=== PATIENT | female | born 1985 | race Native Hawaiian/Other Pacific Islander ===

== ENCOUNTER 2019-04-21 19:26 | Inpatient (IN) | payer OTHER ==
[~2019-04-21] VITALS: Ht 157.5 cm; Wt 65.1 kg
[2019-04-21 19:50] VITALS: BP 104/66
[2019-04-21] MEDS ORDERED: LACTATED RINGER'S 1000 ML IV STA (20:07)
--- NOTE | 2019-04-21 20:13 | HPEPDOC ---
Obstetrical History & Physical General Date of Admission Apr 21, 2019 at 20:06 History of Present Illness 34 yo at 38+6 weeks gestation by LMP of 23Jul2018 c/w 8+3 week US on presents to L&D with regular, painful contractions that have been worsening throughout the day. She denies any vaginal bleeding or leakage of fluid. She endorses excellent movement. is uncomplicated. Chief Complaint: Contractions, term Information Provided By: Patient Age: 34 : 2 Term: 1 Pre-term: 0 Abortions: 0 Livin Care Care: Good Care Dating Final EDC: Apr 29, 2019 Final EDC for Daily Update: Apr 29, 2019 Final EDC by: LMP (LMP of 23Jul2018) LMP: Jul 23, 2018 1st Trimester Date: Sep 17, 2018 (8+3 week US on 17Sep2018 c/w LMP dating. MEIR remains [id number]) Antepartum Course Diagnos(e)s Elevatd 1hr GTT of 144, normal 3 hour GTT. Past Medical History Past Obstetrical History : Past Obstetrical History: Multigravida ( in 2017, pelvis proven to 6lbs 14oz) Type of Delivery: Spontaneous Vaginal Del. 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 Past Medical History Medical History Denies Surgical History: Rimforest teeth Family History Significant Family History: No pertinent family hx Social History Marital Status: Family situation: Spouse/partner home Psychosocial History: No pertinent psych hx * Smoker: non-smoker Alcohol: Denies Drugs: denies Imunizations Tdap status: current Influenza Status: current Medications Scheduled Docosahexanoic Acid (Dha) 100 Mg Capsule, 100 MG PO DAILY No.137/Iron/Folic Acd ( Vitamin Tablet) 1 Each Tablet, 1 TAB PO DAILY [Vit D] , 1 TAB PO DAILY Physical Examination Physical Examination GENERAL: Alert and oriented times three. ABDOMEN: Gravid and non-tender to touch. FETUS: Is vertex (VTX) by sterile vaginal examination (SVE) EXTREMITIES: No edema. Laboratory Data Urine Culture: No Growth Pertinent Laboratoy Data Blood Type: O+ RBC Antibody Screen: Negative HIV: Negative Hepatitis B: Negative Hepatitis C: Unknown Rapid Plasma Reagin: Nonreactive Rubella: Immune Varicella: Immune Chlamydia/Gonorrhea: Negative Group B Streptococcus: Negative Quad Screen Test: Negative Cystic Fibrosis: Unknown Glucose Tolerance Test: 144 (1hr of 144, but normal 3hr testing) Anatomy Ultrasound Placenta Location: Posterior Normal Anatomy: Yes Placenta Previa: No Vaginal Examination Dilation: 4 cm Effacement: 90% Station: -1 Cervical Consistency: Soft Cervical Position: Middle Presentation: Cephalic presentation Position: Vertex (occiput) Assessment Heart Rate (FHR): 145 Variability: Moderate Accelerations: Positive Decelerations: None Tocometer Contractions: Yes Frequency: regular, every 1-3 min. Strength: palpated as strong Assessment/Plan Assessment 34 yo at 38+6 weeks presented in L&D in early labor. Uncomplicated . Plan Admit to L&D for expectant management of labor. Will augment as clinically ioana cated. Apply IV fluids. GBS negative. Patient may epidural if desired. Anticipate . DO HIRA Levi CHRISTOPHER J. DO Apr 21, 2019 20:13
[2019-04-21] MEDS ORDERED: PRENTAB9 PO (20:21)
[2019-04-21] MEDS ORDERED: DHA100CA PO (20:21)
[2019-04-21] MEDS ORDERED: VIT D PO (20:21)
[2019-04-21 20:56] LABS: HEMATOCRIT 39.4 % (36.0-47.0); HEMOGLOBIN 13.2 g/dl (12.0-15.5); MEAN CORPUSCULAR HEMOGLOBIN 29.9 pg (27.0-33.0); MEAN CORPUSCULAR HGB CONC 33.5 g/dl (32.0-36.5); MEAN CORPUSCULAR VOLUME 89.1 fl (80.0-96.0); PLATELET COUNT, AUTOMATED 262 10^3/uL (150-450); RED BLOOD COUNT 4.42 10^6/uL (4.00-5.40); WHITE BLOOD COUNT 10.6 10^3/uL (4.0-10.0)
[2019-04-22] VITALS (8 sets, daily range): BP systolic 78–101; BP diastolic 44–54
[2019-04-22] MEDS ORDERED: ACETAMINOPHEN 500 MG TAB PO PRN (00:45)
[2019-04-22] MEDS ORDERED: PROMETHAZINE 25 MG TAB PO PRN (00:45)
[2019-04-22] MEDS ORDERED: DIBUCAINE 1% OINTMENT 30GM TOP PRN (00:45)
[2019-04-22] MEDS ORDERED: ACETAMINOPHEN TAB 650MG DOSE (2X325MG) PO PRN (00:45)
[2019-04-22] MEDS ORDERED: MEASLES,MUMPS,RUBELLA VACCINE INJ (MMR-II) (90707) SC SCH (00:45)
[2019-04-22] MEDS ORDERED: IBUPROFEN 800 MG TAB PO PRN (00:45)
[2019-04-22] MEDS ORDERED: RHOGAM 300 MCG (1500 IU) INJ (J2790) IM SCH (00:45)
--- NOTE | 2019-04-22 00:47 | DNPDOC ---
[facility] Delivery Note Delivery Note DATE OF DELIVERY: 22Apr2019 at ~0015 PREDELIVERY DIAGNOSIS: 39+0 weeks gestation and active labor POST DELIVERY DIAGNOSIS: Delivered. 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 Millan ANESTHESIA: None ESTIMATED BLOOD LOSS: 200 mL. FINDINGS: Viable female infant, 7lbs 12oz, Apgars 9/9 DELIVERY SUMMARY: Called to room as patient felt urge to push. Exam revealed fetus at +2 station. The bed was broken down and she was prepped for delivery. With excellent pushing effort her delivered. presentation was CELSA with restitution to LOT. The right anterior shoulder delivered with gentle traction followed easily by the remainder of the body. There was a right com pound hand with delivery. The was dried and stimulated on the field and a bulb suction was used. The was then placed on the maternal abdomen and cried vigorously. The three vessel cord was then clamped and cut by the FOB after appropriate time delay. Third stage was then completed with gentle traction on the cord and it was productive of an intact placenta. The uterine fundus was firmed with massage. The patient declined pitocin after delivery. Inspection of the vagina, perineum, and cervix revealed a midline 1st degree perineal laceration and a periurethral laceration. Lidocaine was injected along the repair sites for additional analgesia. The lacerations were repaired with 3-0 and 4-0 vicryl suture in the usual fashion. There was excellent cosmesis and hemostasis after the repair. The fundus was palpated again and was firm. Sponge, instrument, and needle counts were correct X2. Mother stable when I left the room. DO HIRA Levi CHRISTOPHER J. DO Apr 22, 2019 00:47
[2019-04-22] MEDS: DOCUSATE SODIUM 100 MG CAP PO PRN (03:28)
[2019-04-22] MEDS: IBUPROFEN 600 MG TAB PO PRN ×3 (03:29→18:39)
[2019-04-22] MEDS: PRENATAL VITAMINS CHEWABLE TABLET PO SCH (10:26)
[2019-04-23 06:00] VITALS: BP 87/49
--- NOTE | 2019-04-23 06:37 | NUR ---
Post note S: no complaints O: BP=89/47 P=89 AF NAD Abd: NT, FF ext: NT A/P 34 yo s/p Routine PP care Alexander Eugene MD
[2019-04-23] MEDS: PRENATAL VITAMINS CHEWABLE TABLET PO SCH (09:53)
[2019-04-23] MEDS: DOCUSATE SODIUM 100 MG CAP PO PRN (15:45)
[2019-04-23 18:00] VITALS: BP 99/46
[2019-04-23] MEDS: IBUPROFEN 600 MG TAB PO PRN (18:14)
[2019-04-23] MEDS ORDERED: DOCUSATE SODIUM 100 MG CAP PO ONE (20:15)
[2019-04-23] MEDS ORDERED: BISACODYL 10 MG SUPP PR ONE (20:15)
[2019-04-24 06:23] VITALS: BP 90/56
--- NOTE | 2019-04-24 07:47 | IPNPDOC ---
Progress Note Date of Service: Apr 24, 2019 Day#: 2 Progress Note Pt doing well. No questions/concerns today. Lochia minimal. Tolerating PO. + f latus. Denies CP, SOB, or leg pain. Ambulating and voiding without issue. NAD AAO x 3 CTABL RRR S1S2 normal Fundus firm, NT 34yo PPD#2 s/p PLAN: 1. Discharge to home today. 2. Tylenol and Motrin for pain. 3. Encourage breast feeding and ambulation. 4. Routine PP visit in 6 weeks in clinic. 5. Discussed return precautions at length. VS, I&O, 24H, Fishbone Vital Signs/I&O Vital Signs Date Time Temp Pulse Resp B/P (MAP) Pulse Ox O2 Delivery O2 Flow Rate FiO2 04/24/19 06:23 97.8 68 18 90/56 (67) 04/22/19 05:48 98 DAWSON KENNEDY MD Apr 24, 2019 07:47
[2019-04-24] MEDS ORDERED: IBUP80TA PO (07:52)
[2019-04-24] MEDS ORDERED: ACET-683 PO (07:52)
[2019-04-24] MEDS ORDERED: COLA100C5 PO (07:52)
[2019-04-24] MEDS ORDERED: DOCUSATE SODIUM 100 MG CAP PO SCH (09:00)
[2019-04-24] MEDS: IBUPROFEN 600 MG TAB PO PRN (10:10)
== END 2019-04-24 13:15 | disposition home or self-care (01) | DRG 807 ==
LOC: M LDO 19:26 → M LDI 20:06 → M OBS 04-22 03:00
PROVIDERS: ADMIT Obstetrics & Gynecology; ATTEND Obstetrics & Gynecology
PROC: 10E0XZZ Delivery of Products of Conception, External Approach (ICD-10-PCS; principal; 2019-04-22)
PROC: 0HQ9XZZ Repair Perineum Skin, External Approach (ICD-10-PCS; 2019-04-22)
DX: O70.0 First degree perineal laceration during delivery (principal); Z37.0 Single live birth; Z3A.38 38 weeks gestation of pregnancy; O32.6XX0 Maternal care for compound presentation, not applicable or unspecified; O71.82 Other specified trauma to perineum and vulva

== ENCOUNTER 2020-11-02 20:29 | Inpatient (IN) | payer OTHER ==
[2020-11-02] VITALS (36 sets, daily range): BP systolic 70–136; BP diastolic 36–73
[~2020-11-02] VITALS: Ht 157.5 cm; Wt 67.0 kg
[~2020-11-02 20:29] MED LIST: ACET-683 PO; COLA100C5 PO; DHA100CA PO; IBUP80TA PO; PRENTAB9 PO; VIT D PO
[2020-11-02] MEDS ORDERED: LR 1,000 ML IV SCH (20:38)
[2020-11-02] MEDS ORDERED: LACTATED RINGER'S 1000 ML IV ONE (20:45)
[2020-11-02 20:51] LABS: HEMATOCRIT 38.8 % (36.0-47.0); HEMOGLOBIN 12.8 g/dl (12.0-15.5); MEAN CORPUSCULAR HEMOGLOBIN 30.1 pg (27.0-33.0); MEAN CORPUSCULAR VOLUME 91.3 fl (80.0-96.0); PLATELET COUNT, AUTOMATED 271 10^3/uL (150-450); RED BLOOD COUNT 4.25 10^6/uL (4.00-5.40); WHITE BLOOD COUNT 11.5 10^3/uL (4.0-10.0)
[2020-11-02] MEDS ORDERED: FENTANYL 2MCG/ML ROPIVACAINE 0.2% IN 0.9% NACL 100ML IVBAG As Ordered ONE (21:34)
--- NOTE | 2020-11-02 21:54 | HPEPDOC ---
Obstetrical History & Physical General Date of Admission Nov 02, 2020 at 20:48 Primary Care Physician: CHANTELLE NEWMAN CNM History of Present Illness Presenting to labor and delivery for SROM clear at term Chief Complaint: LOF, term Age: 35 : 4 Term: 2 Pre-term: 0 Abortions: 1 Livin Care Care: Good Care Dating Final EDC: Nov 10, 2020 Final EDC for Daily Update: Nov 10, 2020 Final EDC by: 1st trimester (US) 1st Trimester Date: Mar 21, 2020 Weeks + Days: 11 (+3) Estimated Date of Confinement: Nov 10, 2020 EGA at Admission: 38 (+6) Antepartum Course Diagnos(e)s marginal placenta on anatomy scan, resolved at 24 wks Height (inches): 62 Pre- weight (lbs.): 112 Admission Weight (lbs.): 147 Change in Weight (lbs.): 35 Past Medical History Past Obstetrical History : Past Obstetrical History: Multigravida (01/2017 38+6wk , 6#14 female; 03/2019 39wk , 7#12 female ) Complications: No AIR CARGO AGENT History: No pertinent history Past Medical History Medical History oral HSV Surgical History: Denies/None Family History Significant Family History: Hypertension (father), Other (sister-lupus) Social History 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 BREAST: . ABDOMEN: Gravid and non-tender to touch. FETUS: Is vertex (VTX) by sterile vaginal examination (SVE), fetus is vertex (VTX) by Job. HEART RATE: Regular rate and rhythm. LUNGS: Clear to auscultation (CTA). EXTREMITIES: No edema. No clonus. Vital Signs/I&O Vital Signs Date Time Temp Pulse Resp B/P (MAP) Pulse Ox O2 Delivery O2 Flow Rate FiO2 11/02/20 20:40 99.0 61 16 104/65 (78) Laboratory Data 24H LABS Laboratory Tests 2 11/02/20 20:40: Nucleated Red Blood Cells % (auto) 0.0 11/02/20 20:52: Serology Scanned Report Hepatitis B Testing CBC/BMP Laboratory Tests 11/02/20 20:40 Urine Culture: No Growth Pertinent Laboratoy Data Blood Type: O+ RBC Antibody Screen: Negative HIV: Negative Hepatitis B: Negative Rapid Plasma Reagin: Nonreactive Rubella: Immune Varicella: Immune Chlamydia/Gonorrhea: Negative Group B Streptococcus: Negative Cystic Fibrosis: Negative Anatomy Ultrasound Placenta Location: Anterior Normal Anatomy: Yes Placenta Previa: No (lowlying placenta at 20wks, resolved at f/u) Vaginal Examination Dilation: 4 cm Effacement: 90% Station: -2 Cervical Consistency: Soft Cervical Position: Posterior Presentation: Cephalic presentation Assessment Heart Rate (FHR): 120 Variability: Moderate Accelerations: Positive Decelerations: None Tocometer Contractions: Yes Frequency: regular (q2-4 min) Duration: greater than 60 seconds Strength: palpated as strong, resting tone palp/soft Multi-drug resistant Organism: No history of MDRO Assessment/Plan Assessment Marilyn is a 35-year-old (G)4 para (P)2-0-1-2 at 38+6 weeks by 11+3- week ultrasound. Presents to Labor and Delivery (L&D) for SROM clear at term. 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 Diet: clear liquids. Group B Streptococcus (GBS) negative. Labs and intravenous (IV) per unit protocol. Lactated Ringers (LR): Bolus 1000 mL, then at 125 mL/hr. May have epidural as desired. Anticipate normal spontaneous delivery (). C-S as appropriate. CHANTELLE NEWMAN CNM Nov 02, 2020 21:54
[2020-11-02] MEDS ORDERED: NALOXONE INJ 0.4MG/1ML VIAL (J2310 PER 1MG) IV PRN (22:00)
[2020-11-02] MEDS ORDERED: FENTANYL/ROPIVACAINE/NACL BAG 100 ML EPIDURAL SCH (22:00)
[2020-11-02] MEDS ORDERED: LACTATED RINGER'S 1000 ML IV PRN (22:00)
[2020-11-02] MEDS ORDERED: EPIDURAL COMMENT XX SCH (22:00)
[2020-11-02] MEDS ORDERED: diphenhydrAMINE 50MG/ML VIAL (J1200) IV PRN (22:00)
[2020-11-02] MEDS ORDERED: EPIDURAL/PCA KEYS XX PRN (22:00)
[2020-11-02] MEDS ORDERED: ONDANSETRON 4MG/2ML VIAL IV PRN (22:00)
[2020-11-02] MEDS ORDERED: REFRIGERATOR IV KEYS XX PRN (22:00)
[2020-11-02] MEDS: ePHEDrine SULFATE 25 MG/5 ML(5MG/ML) SYRINGE IV PRN ×4 (23:11→23:24)
[2020-11-02] MEDS ORDERED: OXYTOCIN DRIP 30 UNITS in IV 1 EA IV SCH (23:18)
[2020-11-02] MEDS ORDERED: OXYTOCIN 30 UNITS IN 0.9% NaCl 500ML IV BAG (J2590) As Ordered ONE (23:21)
[2020-11-03] VITALS (18 sets, daily range): BP systolic 83–100; BP diastolic 43–56
[2020-11-03] MEDS ORDERED: RHOGAM 300 MCG (1500 IU) INJ (J2790) IM SCH (02:00)
[2020-11-03] MEDS ORDERED: BENZOCAINE 20% HEMORRHOIDAL OINTMENT 28GM TUBE TOP PRN (02:00)
[2020-11-03] MEDS ORDERED: METHYLERGONOVINE MALEATE 0.2 MG TAB PO PRN (02:00)
[2020-11-03] MEDS ORDERED: ACETAMINOPHEN TAB 650MG DOSE (2X325MG) PO PRN (02:00)
--- NOTE | 2020-11-03 02:11 | DNPDOC ---
[facility] Delivery Note Delivery Note DATE OF DELIVERY: 03Nov2020 PREDELIVERY DIAGNOSIS: 39-0/7 weeks' gestation and labor. POST DELIVERY DIAGNOSIS: Delivered. PROCEDURE: Spontaneous vaginal delivery. BUSINESS OPERATIONS COORDINATOR: Hannah Newman CNM ANESTHESIA: epidural. ESTIMATED BLOOD LOSS: 400 mL. FINDINGS: 7 pound 1 ounce female infant Marni, Score 8/9, nuchal cord times 2. DELIVERY SUMMARY: Patient is a 35-year-old 4 now para 3-0-1-3 who was admitted to labor and delivery for SROM on 02Nov2020. Mayflor made gradual progress pushing in multiple positions to facilitate rotation. Infant delivered in OA with restitution to CELSA. A double nuchal cord was noted after delivery of the head. The right anterior shoulder delivered easily followed by the posterior shoulder. The was somersaulted towards the maternal right thigh and the cord was manually reduced. The female was placed immediately skin to skin on the maternal abdomen where she was dried and stimulated to cry. Pitocin infusion was initiated per protocol. The placenta delivered spontaneously in jenny presentation with moderate bleeding. The fundus massaged until firm at U-3. Significant labial and perineal edema were noted with a first degree laceration. The laceration was approximated with 3-[address]1 using the kaleb method. The cervix was swept for several small clots and the fundus firmed with bleeding appropriately slowed. A gardner catheter was placed for noted edema. Mother and baby entered the recovery phase in stable condition, skin to skin. HANNAH NEWMAN CNM Nov 03, 2020 02:11
[2020-11-03] MEDS: IBUPROFEN 800 MG TAB PO PRN ×2 (06:56→15:52)
--- NOTE | 2020-11-03 09:13 | IPNPDOC ---
Progress Note Date of Service: Nov 03, 2020 Day#: 0 Progress Note SUBJECT: Marilyn is a 35-year-old 4 now Para 3-0-1-3 status post uncomplicated spontaneous vaginal delivery at 39-0/7 weeks' at approximately 0221 hours on 03Nov2020 of a female 7 pounds 1 ounces with first degree perineal laceration and repair, doing well. She has an improvement in edema, however desires to leave the catheter in lace while she ambulateds and hydrates more for a few hours this morning. Breast feeding without issue. Reports some cramping with and feeling tired. OBJECTIVE: VITAL SIGNS: Within normal limits, afebrile. Alert and oriented times three. Breath sounds clear to auscultation. Heart rate: Regular rate and rhythm, no murmurs, rubs or gallops. Abdomen: Fundus firm at U-3. Soft, NTTP. Minimal lochia. Large edema, has improved since immediately after delivery. Syed catheter remains in place draining to gravity. ASSESSMENT: day of delivery, pp PLAN: - Tylenol and Motrin for pain. - Encourage breast feeding and ambulation. -remove catheter at 1200 VS, I&O, 24H, Fishbone Vital Signs/I&O Vital Signs Date Time Temp Pulse Resp B/P (MAP) Pulse Ox O2 Delivery O2 Flow Rate FiO2 11/03/20 04:30 98.0 71 16 87/53 (64) I&O- Last 24 Hours up to 6 AM 11/03/20 05:59 Intake Total 2500 ml Output Total 1425 ml Balance 1075 ml Laboratory Data 24H LABS Laboratory Tests 2 11/02/20 20:40: Nucleated Red Blood Cells % (auto) 0.0, Syphilis Serology NONREACTIVE 11/02/20 20:52: Serology Scanned Report Hepatitis B Testing CBC/BMP Laboratory Tests 11/02/20 20:40 CHANTELLE NEWMAN CNM Nov 03, 2020 09:13
[2020-11-03] MEDS: DOCUSATE SODIUM 100MG CAPSULE PO PRN (09:40)
[2020-11-03] MEDS: PRENATAL VITAMINS CHEWABLE TABLET PO SCH (09:40)
[2020-11-04] MEDS: DOCUSATE SODIUM 100MG CAPSULE PO PRN (00:50)
[2020-11-04] MEDS: IBUPROFEN 800 MG TAB PO PRN ×3 (00:51→16:36)
[2020-11-04 05:50] VITALS: BP 85/44
[2020-11-04] MEDS: PRENATAL VITAMINS CHEWABLE TABLET PO SCH (08:59)
[2020-11-04] MEDS ORDERED: IBUP80TA PO (09:39)
[2020-11-04] MEDS ORDERED: DOK1CAP7 PO (09:39)
[2020-11-04] MEDS ORDERED: ACET1TAB55 PO (09:39)
[2020-11-04] MEDS ORDERED: AMER20OI TOP (09:39)
--- NOTE | 2020-11-04 09:41 | DS.PDOC ---
Discharge Summary General Date of Admission Nov 02, 2020 at 20:48 Date of Discharge Nov 04, 2020 Discharge Summary HOSPITAL COURSE: Ms. 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 Her course was unremarkable. On her day of discharge she met all appropriate discharge criteria. She was ambulating, voiding, tolerating a regular diet, and had minimal lochia. DISCHARGE MEDICATIONS: Please see below. ALLERGIES: Please see below. PHYSICAL EXAMINATION ON DISCHARGE: VITAL SIGNS: Please see below. GENERAL: AAOX3, NAD ABDOMINAL EXAMINATION: Fundus firm at U-2. No fundal tenderness EXTREMITIES: No edema PSYCHIATRIC EXAMINATION: Affect appropriate LABORATORY DATA: Please see below. ACTIVITY: Pelvic rest for 6 weeks DIET: Regular DISCHARGE PLAN: Discharge home DISPOSITION: Discharge home on 04Nov2020 . DISCHARGE INSTRUCTIONS: 1. Nothing in the vagina for 6 weeks ITEMS TO FOLLOWUP ON ON OUTPATIENT: 1. Call to schedule a visit for 6-8 weeks post delivery DISCHARGE CONDITION: Stable. TIME SPENT ON DISCHARGE: Greater than 20 minutes. Meryl Millan DO Vital Signs/I&Os Vital Signs Date Time Temp Pulse Resp B/P (MAP) Pulse Ox O2 Delivery O2 Flow Rate FiO2 11/04/20 05:50 97.6 63 16 85/44 (58) 11/03/20 18:00 99 Room Air I&O- Last 24 Hours up to 6 AM 11/04/20 06:00 Intake Total 960 ml Output Total 1525 ml Balance -565 ml Discharge Medications Scheduled No.137/Iron/Folic Acd ( Vitamin Tablet) 1 Each Tablet, 1 TAB PO DAILY, (Reported) [Vit D] , 1 TAB PO DAILY, (Reported) Scheduled PRN Acetaminophen (Acetaminophen) 325 Mg Tablet, 650 MG PO Q4HP PRN for PAIN LEVEL 1-5 Benzocaine (Americaine) 20% Oint...g., 0 DOSE TOP Q4H PRN for PAIN Docusate Sodium (Dok) 100 Mg Capsule, 100 MG PO QHSP PRN for CONSTIPATION Ibuprofen (Ibuprofen) 800 Mg Tablet, 800 MG PO Q8HP PRN for PAIN LEVEL 6-10 Allergies Coded Allergies: No Known Allergies (Unverified , 04/22/19) MERYL MILLAN DO Nov 04, 2020 09:41
[2020-11-04 17:56] VITALS: BP 95/51
[2020-11-05] MEDS: IBUPROFEN 800 MG TAB PO PRN ×2 (02:55→11:11)
[2020-11-05] MEDS: DOCUSATE SODIUM 100MG CAPSULE PO PRN (02:55)
[2020-11-05 06:00] VITALS: BP 87/51
[2020-11-05] MEDS: PRENATAL VITAMINS CHEWABLE TABLET PO SCH (07:36)
== END 2020-11-05 11:45 | disposition home or self-care (01) | DRG 807 ==
LOC: M LDO 20:29 → M LDI 20:48 → M OBS 11-03 04:20
PROVIDERS: ADMIT Obstetrics & Gynecology; ATTEND Registered Nurse
PROC: 10E0XZZ Delivery of Products of Conception, External Approach (ICD-10-PCS; principal; 2020-11-03)
PROC: 0HQ9XZZ Repair Perineum Skin, External Approach (ICD-10-PCS; 2020-11-03)
DX: O69.81X0 Labor and delivery complicated by cord around neck, without compression, not applicable or unspecified (principal); Z37.0 Single live birth; Z3A.38 38 weeks gestation of pregnancy; O70.0 First degree perineal laceration during delivery

== ENCOUNTER 2020-11-29 06:01 | Day surgery (SDC) | payer OTHER ==
[~2020-11-29] VITALS: Ht 157.5 cm; Wt 56.2 kg
[~2020-11-29 06:01] MED LIST changes: +ACET1TAB55 PO; +AMER20OI TOP; +DOK1CAP7 PO
[2020-11-29] MEDS ORDERED: TOBRADEX OPHTH OINT 3.5 GM As Ordered ONE (07:10)
[2020-11-29] MEDS ORDERED: POVIDONE-IODINE 5% OPHTH PREP SOL 30ML As Ordered ONE (07:10)
[2020-11-29] MEDS ORDERED: LIDOCAINE 2% W/EPINEPHRINE 20ML VIAL **PRES FREE As Ordered ONE (07:11)
[2020-11-29] MEDS ORDERED: ePHEDrine SULFATE 25 MG/5 ML(5MG/ML) SYRINGE As Ordered ONE (07:31)
[2020-11-29] MEDS ORDERED: PROPARACAINE 0.5% OPHTH SOL 15ML As Ordered ONE (07:32)
[2020-11-29] MEDS ORDERED: LIDOCAINE 2% 100MG/5ML SDV (FOR ANES.) As Ordered ONE (07:34)
[2020-11-29] MEDS ORDERED: fentaNYL 100 MCG/2 ML INJECTION (J3010) As Ordered ONE (07:35)
[2020-11-29] MEDS ORDERED: MIDAZOLAM INJ 2MG/2ML VIAL (J2250 PER 1MG) As Ordered ONE (07:35)
[2020-11-29] MEDS ORDERED: propofoL 200 MG/20 ML VIAL As Ordered ONE ×2 (07:48→07:56)
[2020-11-29 08:40] VITALS: BP 82/54
--- NOTE | 2020-11-30 08:58 | RO ---
OPERATIVE NOTE DATE OF OPERATION: 11/29/2020 PREOPERATIVE DIAGNOSIS: 1. 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 PROCEDURE: 1. Excision of peripheral progressive pterygium of the left eye with use of amniotic membrane graft and Tissel glue. SURGEON: Neri Sigala DO ANESTHESIA: Local with MAC. DESCRIPTION OF PROCEDURE: The patient was seen and identified in the preoperative area. The consents were reviewed. The surgical eye was marked. The patient received topical antibiotics and anesthetics to the surface of the surgical eye. The patient was then transferred to the operating room. The eye was prepped and draped in a sterile fashion. Tegaderm was used to isolate the upper and lower eyelids. A wire lid speculum was placed. Using 1% Lidocaine with epinephrine approximately 1 mL of anesthesia was injection into the subconjunctival space and this was spread with a cotton tip applicator. After that, a sharp tip Rylie scissors and 0.12 forceps were used to excise the head of the nasal pterygium and this was sent to pathology. Careful dissection was carried out posterior to remove all body of the pterygium. Any visible Tenon's was removed so the conjunctiva could lie flat. Gentle wet field cautery was applied to the surface of the scleral bed so that there was no bleeding. At that time using a [place] blade, the nasal corneal surface was polished until the surface was smoothed and this was further achieved with the use of a 3-mm ugo emily. The conjunctival defect was measured to be approximately 5 x 4 mm. The decision was made to use an amniotic membrane graft. This was fashioned to the appropriate size and placed over the conjunctival defect. Two 10-0 nylon sutures were used to tack the amniotic membrane graft at the corneal limbus. Tissel glue was prepared at the back table and then placed under the graft. The area was smoothed using bent forceps until the graft remained adherent to the surface of the scleral bed. Any excess glue was trimmed using Rylie scissors and 0.12 forceps. A contact lens was placed over the surface of the eye. TobraDex was placed in a patch and shield placed over the eye. The patient was discharged to the PACU in stable condition. MANISH
== END 2020-11-29 09:35 | disposition home or self-care (01) ==
LOC: M SDC 06:01
PROVIDERS: ATTEND Ophthalmology
DX: H11.042 Peripheral pterygium, stationary, left eye (principal)
CPT/HCPCS: 65426; 81025; 88304; A6024; C1762; J2250; J3010